=== PATIENT | female | born 1985 | race Caucasian/White ===

== ENCOUNTER 2020-01-05 19:35 | Emergency (ER) | payer SELFPAY ==
[2020-01-05 19:40] VITALS: PULSE 138; RESP 20; TEMP 39.4; O2SAT 99; BMI 21.1
[2020-01-05 20:01] VITALS: BP 183/129; PULSE 126; RESP 20; O2SAT 96
--- NOTE | 2020-01-05 20:16 | ED_ITS ---
HPI - General Adult General: Chief complaint: General Medical Stated complaint: hurts all over Time Seen by Provider: 01/05/20 20:01 History of Present Illness: HPI narrative: Patient is a 34-year-old female who comes into the ED with fever, body aches and cough. Symptoms started on Monday. She is also complaining of a headache. She has taken ibuprofen to help with fever and headache. She had 2 episodes of vomiting yesterday. She denies any diarrhea. She describes her cough as productive with clear phlegm. Denies any shortness of breath or chest pain. Associated symptoms: Reports headache(s) and vomiting; Deny chest pain, dyspnea, nausea, rash or palpitations Review of Systems Const: Reports: fever and body aches; Denies: chills or fatigue Eyes: Denies: change in vision or eye discomfort ENMT: Reports: throat pain and nasal discharge; Denies: painful swallowing or nasal congestion Card: Denies: chest pain, palpitations, edema, swelling of feet/ankles, shortness of breath on exertion or shortness of breath when lying down Resp: Denies: shortness of breath, productive cough or non-productive cough GI: Reports: vomiting; Denies: abdominal pain, nausea, diarrhea, constipation or blood in stool : Denies: flank pain, painful urination or blood in urine Musc: Denies: neck pain, back pain or extremity swelling Skin/Breast: Denies: rash or new lesion Neuro: Reports: headache; Denies: numbness in extremities or weakness in extremities PFS ED PFSH: Social History Smoking and tobacco status: never smoked Female Reproductive History: Date of last menstrual period: 01/05/20 Physical Exam Const: COMMON NORMALS: oriented x3 HENMT: COMMON NORMALS: normocephalic and TM's normal bilaterally HEAD & SCALP: normocephalic TYMPANIC MEMBRANE: TM's normal bilaterally MOUTH: oral and palatal mucosa normal THROAT: uvula midline and posterior oropharynx abnormal cobblestoning and erythema Neck/C-Spine: COMMON NORMALS: supple GENERAL: Yes normal visual inspection Resp: COMMON NORMALS: normal respiratory effort, no retractions, no use of accessory muscles and clear to auscultation bilaterally AUSCULTATION: clear to auscultation bilaterally Cardio: COMMON NORMALS: regular rate, regular rhythm, S1 normal heart sound, S2 normal heart sound, no gallops, no clicks, no murmurs and peripheral pulses 2+ throughout RATE: regular rate RHYTHM: regular rhythm HEART SOUNDS: S1 normal and S2 normal PERIPHERAL PULSES: pulses 2+ throughout GI: COMMON NORMALS: normal to inspection, nondistended, normoactive bowel sounds, soft to palpation, non-tender and no masses PALPATION: Yes soft : COMMON NORMALS: Yes no CVA tenderness BLADDER/KIDNEY EXAM: Yes no CVA tenderness Back/Pelvis: COMMON NORMALS: no CVA tenderness Extremity: COMMON NORMALS: normal to inspection and normal capillary refill Neuro: COMMON NORMALS: oriented x3 and moves all extremities Skin: COMMON NORMALS: no rashes or lesions noted NARRATIVE SKIN EXAM: Cleopatra ent skin is a little clammy around the neck and back. GENERAL SKIN EXAM: no rashes or lesions noted Course ED course: Patient has been able to drink fluids and keep them down while here in the ED. She complained that she still had a headache and sore developing some nausea so we gave her some Tylenol and Zofran those medications helped patient and improved symptoms. Vital Signs: Vital signs: Vital Signs Temperature 98.8 F 01/05/20 23:40 Pulse Rate 82 01/05/20 23:40 Respiratory Rate 16 01/05/20 23:40 Blood Pressure 155/115 01/05/20 23:40 Pulse Oximetry 96 01/05/20 23:40 MDM - General Adult Lab Data: Attestation: I reviewed the patient's lab results. Labs: Lab Results 01/05/20 01/05/20 01/05/20 Range/Units 20:08 21:13 21:13 HCG, Qual Negative (Negative) Urine Color Yellow (Yellow) Urine Appearance Clear (CLEAR) Urine pH 5 (5-7) Ur Specific Gravit y 1.015 (1.005-1.030) Urine Protein Neg (Negative) Urine Glucose (UA) Norm (Normal) Urine Ketones 2+ H (Negative) Urine Blood 2+ H (Negative) Urine Nitrate Negative (Negative) Urine Bilirubin Neg (NEGATIVE) Urine Urobilinogen Norm (Negative) mg/dL Ur Leukocyte Meera ase Negative (Negative) Urine RBC 0-4 H (0-2) /hpf Urine WBC 0-4 H (0-5) /hpf Ur Squamous Epith Cells 0-4 H (0-5) Urine Bacteria 1+ H (NONE) Urine Mucus 3+ Influenza Type A A g Negative (Negative) POC Influenza B Ag Negative (Negative) Group A Strep Rapi d (Negative) 01/05/20 Range/Units 21:13 HCG, Qual (Negative) Urine Color (Yellow) Urine Appearance (CLEAR) Urine pH (5-7) Ur Specific Gravit y (1.005-1.030) Urine Protein (Negative) Urine Glucose (UA) (Normal) Urine Ketones (Negative) Urine Blood (Negative) Urine Nitrate (Negative) Urine Bilirubin (NEGATIVE) Urine Urobilinogen (Negative) mg/dL Ur Leukocyte Meera ase (Negative) Urine RBC (0-2) /hpf Urine WBC (0-5) /hpf Ur Squamous Epith Cells (0-5) Urine Bacteria (NONE) Urine Mucus Influenza Type A A g (Negative) POC Influenza B Ag (Negative) Group A Strep Rapi d Negative (Negative) Imaging Data^: CXR: Attestation: I personally reviewed and interpreted this imaging study as follows: My impression: Possible acute bronchitis. No pneumonia seen. Pending final radiology report. Discharge Plan Discharge Patient Disposition: Home, Self-Care Clinical Impression: Acute bronchitis Qualifiers: Bronchitis organism: unspecified organism Qualified Code(s): J20.9 - Acute bronchitis, unspecified Condition: Stable Prescriptions: New azithromycin 250 mg tablet See Rx Instructions .ROUTE .COMPLEX Qty: 6 RF: 0 Discharge Orders: Discharge Order (Routine); Ordered 01/05/20 Ordered By: Dwight Carrasco Referrals: Hemanth Erickson MD [Primary Care Provider] - Discharge Diet: Regular Discharge Activity: Resume usual activity Patient Instructions: Bronchitis (Acute) - Adult Activity Restrictions/Additional Instructions: Follow-up with your PCP in 7-10 days for reevaluation. Take full course of antibiotic as prescribed. Take Tylenol or ibuprofen to help with fevers. Drink plenty of fluids and stay hydrated. Discharge Date/Time: 01/05/20 23:41 Coding Level of Care Code ED [employer] Cutter Hand for Chg Fwd Exam Comprehensive
[2020-01-05] MEDS: ibuprofen 600 mg Tablet PO (20:19)
[2020-01-05 20:46] LABS: Influenza A by IFA Negative (Negative); Influenza B by IFA Negative (Negative)
--- NOTE | 2020-01-05 21:07 | XR_ITS ---
WS: [id number] PORTABLE CHEST HISTORY: cough and fever COMPARISON: None available. Lungs are clear and well expanded. No pleural effusion or pneumothorax. Cardiac size: Normal. Mediastinum/Aorta: Normal mediastinum. No osseous abnormality seen. XR/XR chest 1V portable [id number] IMPRESSION: Unremarkable portable chest.
[2020-01-05 21:33] LABS: Rapid Strep A Test Negative (Negative)
[2020-01-05 21:38] LABS: Glucose Urine UA Norm (Normal); HCG Qualitative Urine. Negative (Negative); Ketones Urine 2+ (Negative); Protein Urine Neg (Negative); Specific Gravity, Urine 1.015 (1.005-1.030); Urine Appearance Clear (CLEAR); Urine Color Yellow (Yellow); pH Urine 5 (5-7)
[2020-01-05 21:39] LABS: Bacteria Urine 1+; Bilirubin Urine Neg (NEGATIVE); Blood Urine 2+ (Negative); Leukocyte Esterase Urine Negative (Negative); Mucus Urine 3+; Nitrate Urine Negative (Negative); RBC Urine 0-4 /hpf (0-2); Squamous Epithelial Cell Urine 0-4 (0-5); Urobilinogen Urine Norm (Negative); WBC Urine 0-4 /hpf (0-5)
[2020-01-05] MEDS: azithromycin 250 mg Tablet 500 MG PO (22:31)
[2020-01-05] MEDS: acetaminophen 500 mg Tablet PO (22:59)
[2020-01-05] MEDS: ondansetron 4 MG Tablet PO (23:36)
[2020-01-05 23:40] VITALS: BP 155/115; PULSE 82; RESP 16; TEMP 37.1; O2SAT 96
== END 2020-01-05 23:41 | disposition home or self-care (01) ==
PROVIDERS: Emergency Provider Physician Assistant; Family Provider Family Medicine; PCP Family Medicine
DX: J20.9 Acute bronchitis, unspecified (principal)
CPT/HCPCS: 71045; 81001; 81025; 87081; 87804; 87880; 99281; 99283; A9270; Q0144; Q0162

== ENCOUNTER 2020-05-22 14:46 | Outpatient (CLI) | payer MEDICAID, SELFPAY ==
--- NOTE | 2020-05-22 14:52 | US_ITS ---
WS: [id number] EARLY OBSTETRICAL ULTRASOUND (<14 WEEKS). HISTORY: THREATENED MISCARRIAGE COMPARISON: None available. Uterus is enlarged. There is a large amount of mixed debris in the central endometrial canal with dis tention. Variable echogenicity with a few cystic areas scattered throughout the heterogeneous materia l. Diameter is 2.8 cm of the endometrium. Complex material extends towards the endocervical canal. Th ere is no pole or cardiac activity or gestational sac. No free fluid. Both ovaries are identified and normal. No adnexal masses otherwise. US/US OB <= 14 weeks fetus [id number] IMPRESSION: 1. No intrauterine gestation identified. 2. Complex material along the endometrial canal is probably retained products of the conception. Numerous cystic areas partial molar should be cons idered as a possible etiology. 3. No free fluid.
== END 2020-05-22 14:47 | disposition home or self-care (01) ==
LOC: RAD 14:49
PROVIDERS: Family Provider Family Medicine; PCP Family Medicine; Visit Provider Family Medicine
DX: O20.0 Threatened abortion (principal)
CPT/HCPCS: 76801